=== PATIENT | female | born 1995 | race Hispanic/Latino ===

== ENCOUNTER 2022-01-01 09:39 | Emergency (ER) | payer SELFPAY | END 2022-01-01 11:01 | disposition home or self-care (01) | LOC: BURERS 09:39 | DX: B34.9 Viral infection, unspecified (principal) | CPT/HCPCS: 99283 ==

== ENCOUNTER 2024-01-06 18:18 | Emergency (ER) | payer OTHER ==
[2024-01-06] MEDS ORDERED: valACYclovir 500 MG TAB ONE (19:00)
== END 2024-01-06 19:08 | disposition home or self-care (01) ==
LOC: BURERS 18:18
DX: B01.9 Varicella without complication (principal)
CPT/HCPCS: 99282